=== PATIENT | female | born 1995 | race Caucasian/White ===

== ENCOUNTER 2017-02-22 22:57 | Emergency (ER) | payer SELFPAY ==
[2017-02-22 23:01] VITALS: BP 115/75; PULSE 81; TEMP 98.2; BMI 21.5
--- NOTE | 2017-02-22 23:38 | PDOC ---
History of Present Illness - History of Present Illness Initial Comments: 02/22/17 23:48 The patient is a 21 year old female, with no significant past medical history, who presents to the emergency department with a painful lump to her left breast today. The patient denies having pain to her breast yesterday. She denies any other symptoms. She denies chest pain, shortness of breath, headache and dizziness. She denies fever, chills, nausea, vomit, diarrhea and constipation. She denies dysuria, frequency, urgency and hematuria. Allergies: NKDA PCP - Dr. Roach <Sandra Butler - Last Filed: 02/22/17 23:48> <Aranza Medellin - Last Filed: 02/23/17 01:38> - General Chief Complaint: Pain Stated Complaint: LUMP ON LT BREAST Time Seen by Provider: 02/22/17 23:01 Past History <Sandra Butler - Last Filed: 02/22/17 23:48> - Immunization History Immunization Up to Date: Yes - Psycho/Social/Smoking Cessation Hx Anxiety: No Suicidal Ideation: No Smoking Status: No Smoking History: Never smoked Have you smoked in the past 12 months: No Number of Cigarettes Smoked Daily: 0 Hx Alcohol Use: No Drug/Substance Use Hx: No Substance Use Type: None <Aranza Medellin - Last Filed: 02/23/17 01:38> - Past Medical History Allergies/Adverse Reactions: Allergies Allergy/AdvReac Type Severity Reaction Status Date / Time No Known Allergies Allergy Verified 02/22/17 22:59 Home Medications: Ambulatory Orders Amoxicillin/Potassium Clav [Augmentin 875-125 Tablet] 1 each PO BID #20 tablet 02/22/17 Sulfamethoxazole/Trimethoprim [Bactrim Ds -] 1 tab PO BID #14 tablet 02/22/17 Review of Systems - Review of Systems Able to Perform ROS?: Yes Comments:: 02/22/17 23:48 CONSTITUTIONAL: Absent: fever, no chills, no fatigue EYES: Absent: visual changes ENT: Absent: ear pain, no sore throat CARDIOVASCULAR: Absent: chest pain, no palpitations RESPIRATORY: Absent: cough, no SOB GI: Absent: abdominal pain, no nausea, no vomiting, no constipation, no diarrhea GENITOURINARY: Absent: dysuria, no frequency, no hematuria MUSCULOSKELETAL: Absent: back pain, no arthralgia, no myalgia SKIN: (+) painful lump to left breast. Absent: rash NEURO: Absent: headache <Sandra Butler - Last Filed: 02/22/17 23:48> *Physical Exam - Vital Signs Last Vital Signs Temp Pulse Resp BP Pulse Ox 98.2 F 81 18 115/75 100 02/22/17 23:00 02/22/17 23:00 02/22/17 23:00 02/22/17 23:00 02/22/17 23:00 - Physical Exam Comments: 02/22/17 23:49 GENERAL: Well-appearing, well-nourished. No apparent distress. HEENT: Normocephalic, atraumatic. PERRL, EOM intact. CARDIOVASCULAR: Normal S1, S2. Regular rate and rhythm. PULMONARY: Clear to auscultation bilaterally. ABDOMEN: Soft, non-distended, non-tender. EXTREMITIES: Normal ROM in all four extremities. No gross deformities. SKIN: (+) erythema to left breast at 8o clock position, the area is indurated and tender. Right breast is normal. Warm, dry. No rash NEUROLOGICAL: No focal neurological deficits. <Sandra Butler - Last Filed: 02/22/17 23:48> - Vital Signs Last Vital Signs Temp Pulse Resp BP Pulse Ox 98.2 F 81 18 115/75 100 02/22/17 23:00 02/22/17 23:00 02/22/17 23:00 02/22/17 23:00 02/22/17 23:00 <Aranza Medellin - Last Filed: 02/23/17 01:38> Medical Decision Making - Medical Decision Making 02/23/17 01:30 21-year-old female with no past significant history noted a painful lump on her left breast today. She denied any history of trauma She denied any fever or chills. She is not breast-feeding There is an area of tenderness at about 8' o clock on her left breast. There is no fluctuance. There is a very mild erythema, but there is a palpable area of induration. There is nothing clinically to I and D at this time -pt placed on antibiotics -referred to breast specialist -pt told to see her PCP for follow <Aranza Medellin - Last Filed: 02/23/17 01:38> *DC/Admit/Observation/Transfer - Attestations Scribe Attestion: 02/22/17 23:50 Documentation prepared by Sandra Butler, acting as medical economics consultant for Aranza Medellin MD <Sandra Butler - Last Filed: 02/22/17 23:48> <Aranza Medellin - Last Filed: 02/23/17 01:38> Diagnosis at time of Disposition: Breast abscess - Discharge Dispostion Disposition: HOME Condition at time of disposition: Stable - Prescriptions Prescriptions: Amoxicillin/Potassium Clav [Augmentin 875-125 Tablet] 1 each PO BID #20 tablet Sulfamethoxazole/Trimethoprim [Bactrim Ds -] 1 tab PO BID #14 tablet - Referrals Referrals: Allan Spivey [Staff Physician] - - Patient Instructions Printed Discharge Instructions: DI for Skin Abscess Additional Instructions: -please take your antibiotics as directed -See your regular physician to arrange for mammography -Follow up with the breast specialist -Return for any worsening symptoms Print Language: [email or web address]
[2017-02-22] MEDS ORDERED: SULFAMETHOXAZOLE/TRIMETHOPRIM 800MG/160MG D.S. TABLET PO ONE (23:44)
[2017-02-22] MEDS ORDERED: IBUPROFEN 600 MG TABLET (FP) PO ONE ×2 (23:48→23:51)
[2017-02-22] MEDS ORDERED: AMOX TR/POT CLAV 875MG/125MG TABLETS (FP) PO ONE (23:49)
[2017-02-22] MEDS ORDERED: SULFAMETHOXAZOLE/TRIMETHOPRIM 800MG/160MG D.S. TABLET ONE (23:50)
[2017-02-22] MEDS ORDERED: AMOX TR/POT CLAV 875MG/125MG TABLETS (FP) ONE (23:50)
== END 2017-02-22 23:58 | disposition home or self-care (01) ==
LOC: JER 22:57
DX: N61.1 Abscess of the breast and nipple (principal)
CPT/HCPCS: 99281-25

== ENCOUNTER 2021-03-27 15:24 | Emergency (ER) | payer OTHER ==
[2021-03-27 16:06] VITALS: BP 104/76; PULSE 83; TEMP 98.3; BMI 22.8
== END 2021-03-27 18:43 | disposition home or self-care (01) ==
LOC: JER 15:24
DX: R05 Cough (principal); J02.9 Acute pharyngitis, unspecified; Z11.52 Encounter for screening for COVID-19
CPT/HCPCS: 99283-25; C9803; U0003; U0005

== ENCOUNTER 2023-08-23 19:32 | Day surgery (SDC) | payer OTHER ==
[2023-08-23 19:41] VITALS: BMI 22.6
[2023-08-23] MEDS ORDERED: ONDANSETRON 4 MG/2 ML VIAL IVPUSH ONE (21:10)
[2023-08-23] MEDS ORDERED: ACETAMINOPHEN 1000 MG/100 ML BAG IVPB ONE (21:10)
[2023-08-23] MEDS ORDERED: SODIUM CHLORIDE 0.9% 500 ML INFUS.BAG IV ONE (21:10)
[2023-08-23] MEDS ORDERED: ONDANSETRON 4 MG/2 ML VIAL ONE (21:31)
[2023-08-23] MEDS ORDERED: ACETAMINOPHEN INJECTION 100 ML IVPB ONE (21:31)
[2023-08-23 21:39] LABS: HEMATOCRIT 36.4 % (32.4-45.2); HEMOGLOBIN 12.4 GM/dL (10.7-15.3); MCH 31.6 pg (25.7-33.7); MCHC 34.2 g/dl (32.0-36.0); MEAN CELL VOLUME 92.4 fl (80-96); MEAN PLT VOLUME 8.5 fl (7.5-11.1); PLATELET COUNT 206 10^3/uL (134-434); RBC 3.94 M/mm3 (3.60-5.2); RDW 12.4 % (11.6-15.6); WHITE BLOOD COUNT 17.8 K/mm3 (4.0-10.0)
[2023-08-23 21:57] LABS: URINE APPEARANCE CLEAR; URINE BILIRUBIN NEGATIVE (NEGATIVE); URINE COLOR YELLOW; URINE GLUCOSE (UA) NEGATIVE (NEGATIVE); URINE KETONE TRACE (NEGATIVE); URINE LEUK ESTERASE NEGATIVE (NEGATIVE); URINE NITRITE NEGATIVE (NEGATIVE); URINE PROTEIN NEGATIVE (NEGATIVE)
[2023-08-23 21:57] LABS: POTASSIUM 3.9 mmol/L (3.5-5.1)
[2023-08-23 21:59] LABS: BLOOD UREA NITROGEN 8.6 mg/dL (7-18)
[2023-08-23 22:00] LABS: ALBUMIN 3.8 g/dl (3.4-5.0)
[2023-08-23 22:03] LABS: CREATININE 0.7 mg/dL (0.55-1.3)
[2023-08-23 22:04] LABS: BILIRUBIN,TOTAL 0.4 mg/dL (0.2-1); TOT PROT 7.3 g/dl (6.4-8.2)
[2023-08-23 22:56] LABS: OVALOCYTE 1+; PLATELET ESTIMATE NORMAL; TOXIC GRANULATION 1+
[2023-08-23] MEDS ORDERED: CEFOXITIN SODIUM 2 GM in DEXTROSE 5%-WATER - 100 ML IVPB ONE (23:18)
[2023-08-23] MEDS ORDERED: morphine CARPU-JECT 4 MG/1 ML DISP.SYRIN IVPUSH ONE (23:19)
[2023-08-23] MEDS ORDERED: SODIUM CHLORIDE 1,000 ML IV SCH (23:30)
[2023-08-23] MEDS ORDERED: morphine SULFATE 4 MG/ML VIAL ONE (23:38)
[2023-08-23] MEDS ORDERED: CEFOXITIN SODIUM 2 GM in DEXTROSE 5%-WATER 100 ML IVPB ONE (23:40)
[2023-08-24] MEDS ORDERED: KETOROLAC TROMETHAMINE 15 MG/ML VIAL ONE (05:38)
[2023-08-24] MEDS: KETOROLAC TROMETHAMINE 15 MG/ML VIAL IVPUSH PRN ×3 (05:43→23:54)
[2023-08-24] MEDS ORDERED: ACETAMINOPHEN 1000 MG/100 ML BAG IVPB PRN ×2 (08:39→18:47)
[2023-08-24 13:22] LABS: INR 1.25 (0.83-1.09); PROTHROMBIN TIME (PATIENT) 14.5 SEC (9.7-13.0)
[2023-08-24] MEDS ORDERED: BUPIVACAINE HCL/PF 0.5% (5MG/ML) 10 ML VIAL ONE (14:46)
[2023-08-24] MEDS ORDERED: BUPIVACAINE HCL/PF 0.25% (2.5MG/ML) 10 ML VIAL ONE (16:22)
[2023-08-24] MEDS ORDERED: SUCCINYLCHOLINE CHLORIDE 200 MG/10 ML SYRINGE ONE (16:50)
[2023-08-24] MEDS ORDERED: MIDAZOLAM HCL 2 MG/2 ML SINGLE DOSE VIAL ONE (16:50)
[2023-08-24] MEDS ORDERED: PROPOFOL 20 ML ONE ×2 (16:50)
[2023-08-24] MEDS ORDERED: ROCURONIUM BROMIDE 50 MG/5 ML SYRINGE ONE (16:50)
[2023-08-24] MEDS ORDERED: LIDOCAINE HCL/PF 2% SDV 5ML VIAL ONE (16:52)
[2023-08-24] MEDS ORDERED: NEOSTIGMINE METHYLSULFATE 0.5 MG/1 ML - 10 ML MDV ONE (17:47)
[2023-08-24] MEDS ORDERED: BUPIVACAINE HCL/PF 0.25% (2.5MG/ML) 10 ML VIAL IJ ONE (18:08)
[2023-08-24] MEDS ORDERED: LACTATED RINGERS SOLUTION 1,000 ML IV SCH (18:30)
[2023-08-24] MEDS: SODIUM CHLORIDE 1,000 ML IV SCH ×2 (19:41→21:01)
[2023-08-25] MEDS: SODIUM CHLORIDE 1,000 ML IV SCH (05:05)
[2023-08-25] MEDS: KETOROLAC TROMETHAMINE 15 MG/ML VIAL IVPUSH PRN (07:08)
[2023-08-25 08:47] LABS: HEMOGLOBIN 11.9 GM/dL (10.7-15.3); MCH 31.3 pg (25.7-33.7); MEAN CELL VOLUME 92.2 fl (80-96); PLATELET COUNT 206 10^3/uL (134-434); RDW 12.2 % (11.6-15.6); WHITE BLOOD COUNT 6.6 K/mm3 (4.0-10.0)
[2023-08-25 08:53] LABS: POTASSIUM 4.3 mmol/L (3.5-5.1)
[2023-08-25 08:55] LABS: CALCIUM 8.4 mg/dL (8.5-10.1)
[2023-08-25 08:56] LABS: ALBUMIN 3.2 g/dl (3.4-5.0)
[2023-08-25 08:59] LABS: CREATININE 0.6 mg/dL (0.55-1.3)
[2023-08-25 09:00] LABS: BILIRUBIN,TOTAL 0.4 mg/dL (0.2-1); TOT PROT 6.4 g/dl (6.4-8.2)
[2023-08-25] MEDS ORDERED: ACETAMINOPHEN 1000 MG/100 ML BAG IVPB PRN (09:48)
[2023-08-25] MEDS ORDERED: oxyCODONE HCL 5 MG TABLET PO PRN ×2 (09:49)
[2023-08-25 09:55] VITALS: BP 130/78; PULSE 71; RESP 20; TEMP 98.2
== END 2023-08-25 14:11 | disposition home or self-care (01) ==
LOC: JER 19:32 → UNDOADMIN 23:22 → JERBED 23:22 → J8W 08-24 08:05 → JERBED 08-24 08:05 → SUATTDRO 08-25 10:23 → JASUSAT 08-25 10:23 → J8W 08-25 10:38 → JASUSAT 08-25 14:11
PROVIDERS: ATTEND Nurse Practitioner Acute Care
PROC: 0DTJ4ZZ Resection of Appendix, Percutaneous Endoscopic Approach (ICD-10-PCS; principal; 2023-08-25)
DX: K35.80 Unspecified acute appendicitis (principal)
CPT/HCPCS: 44970; S2900; 0241U-QW; 36415; 74177-TC; 76856-TC; 80053; 81003; 83690; 84703; 85025; 85027; 85610; 86850; 86900; 86901; 87086; 93005; 93010; 94010; 94760; 99285-25; J0131; Q9967

== ENCOUNTER 2023-12-09 11:24 | Emergency (ER) | payer OTHER ==
[2023-12-09 11:30] VITALS: BP 120/77; PULSE 85; RESP 18; TEMP 97; BMI 22.6
[2023-12-09] MEDS: FAMOTIDINE 20 MG TABLET PO ONE (12:41)
[2023-12-09] MEDS ORDERED: LIDOCAINE VISCOUS 2% ORAL/TOP 15 ML UNIT-DOSE CUP ONE (13:03)
[2023-12-09] MEDS ORDERED: FAMOTIDINE 20 MG/50 ML IVPB 20 MG/50 ML MG IVPB ONE (13:03)
[2023-12-09] MEDS ORDERED: ONDANSETRON 4 MG/2 ML VIAL ONE (13:03)
[2023-12-09] MEDS ORDERED: MAG HYDROX/AL HYDROX/SIMETH 30 ML UNIT-DOSE CUP ONE (13:03)
[2023-12-09 13:09] LABS: BASO % 0.6 % (0-2.0); EOS % 0.4 % (0-4.5); HEMATOCRIT 44.5 % (32.4-45.2); LYMPH % 10.4 % (8-40); MCH 30.8 pg (25.7-33.7); MCHC 33.7 g/dl (32.0-36.0); MEAN CELL VOLUME 91.2 fl (80-96); MEAN PLT VOLUME 8.3 fl (7.5-11.1); MONO % 6.4 % (3.8-10.2); NEUT % 82.2 % (42.8-82.8); PLATELET COUNT 247 10^3/uL (134-434); RBC 4.88 M/mm3 (3.60-5.2); RDW 12.6 % (11.6-15.6); WHITE BLOOD COUNT 9.6 K/mm3 (4.0-10.0)
[2023-12-09] MEDS: MAG HYDROX/AL HYDROX/SIMETH 30 ML UNIT-DOSE CUP PO ONE (13:19)
[2023-12-09] MEDS: LIDOCAINE VISCOUS 2% ORAL/TOP 15 ML UNIT-DOSE CUP MM ONE (13:19)
[2023-12-09] MEDS: SODIUM CHLORIDE 0.9% 500 ML INFUS.BAG IV ONE (13:20)
[2023-12-09] MEDS: ONDANSETRON 4 MG/2 ML VIAL IVPUSH ONE (13:21)
[2023-12-09] MEDS: FAMOTIDINE 20 MG/50 ML IVPB 20 MG/50 ML MG IVPB ONE (13:22)
[2023-12-09 13:31] LABS: POTASSIUM 4.3 mmol/L (3.5-5.1)
[2023-12-09 13:34] LABS: ALBUMIN 4.4 g/dl (3.4-5.0); CALCIUM 9.9 mg/dL (8.5-10.1)
[2023-12-09 13:35] LABS: BLOOD UREA NITROGEN 5.5 mg/dL (7-18)
[2023-12-09 13:37] LABS: CREATININE 0.7 mg/dL (0.55-1.3)
[2023-12-09 13:38] LABS: BILIRUBIN,TOTAL 0.5 mg/dL (0.2-1)
[2023-12-09 13:39] LABS: TOT PROT 8.1 g/dl (6.4-8.2)
== END 2023-12-09 15:18 | disposition home or self-care (01) ==
LOC: JER 11:24
PROC: 3E033GC Introduction of Other Therapeutic Substance into Peripheral Vein, Percutaneous Approach (ICD-10-PCS; principal; 2023-12-09)
PROC: 3E030GC Introduction of Other Therapeutic Substance into Peripheral Vein, Open Approach (ICD-10-PCS; 2023-12-09)
DX: K29.70 Gastritis, unspecified, without bleeding (principal); R10.11 Right upper quadrant pain; R10.13 Epigastric pain; R11.2 Nausea with vomiting, unspecified
CPT/HCPCS: 36415; 76705-TC; 80053; 83690; 85025; 93005; 93010; 99285-25